=== PATIENT | male | born 1950 | race Caucasian/White ===

== ENCOUNTER 2021-08-24 10:42 | Inpatient (IN) | payer MEDICARE, OTHER ==
[~2021-08-24] VITALS: Ht 185.4 cm; Wt 69.1 kg
--- NOTE | 2021-08-24 15:50 | NUR ---
Patient to room 338 from the ED entrance. Came by private vehicle from [employer]. Nurse oriented the patient to location, room and call light.
[2021-08-24 15:59] VITALS: BP 105/69; PULSE 103; TEMP 98
[2021-08-24] MEDS ORDERED: LIPITOR 80MG80 MG PO (16:09)
[2021-08-24] MEDS ORDERED: CIPRO 500MG TA500 MG PO (16:09)
[2021-08-24] MEDS ORDERED: LASIX 20MG TABL20 MG PO (16:09)
[2021-08-24] MEDS ORDERED: NYSTATIN OR100 MU/ML PO (16:10)
[2021-08-24] MEDS ORDERED: TOPROL XL 25MG25 MG PO (16:10)
[2021-08-24] MEDS ORDERED: K-DUR 10 MEQ T10 MEQ PO (16:11)
[2021-08-24] MEDS ORDERED: PLAVIX 75MG TAB75 MG PO (16:12)
[2021-08-24] MEDS ORDERED: PREDNISONE20 MG PO (16:12)
[2021-08-24] MEDS ORDERED: MUCINEX 60600 MG/TA1 PO (16:12)
[2021-08-24] MEDS ORDERED: ASPIRIN E.C. 8181 MG PO (16:12)
[2021-08-24] MEDS ORDERED: TRELEGY ELLIPT1 EACH IH (16:13)
--- NOTE | 2021-08-24 17:49 | NUR ---
Patient sitting up on the edge of bed eating dinner. at the bedside. Patient A&Ox3. VSS. Intermittent coughing 2L NC O2. Denies pain and discomfort. Independent with feeds. Call light within reach
[2021-08-24 18:14] VITALS: BP 111/64; PULSE 102; TEMP 98.4
[2021-08-25 05:26] VITALS: BP 109/69; PULSE 92; TEMP 97.8
--- NOTE | 2021-08-25 06:11 | NUR ---
pt able to shower last noc before bed indepently with staff present. remains on 2L O2 per NC, bubbler added per RT, O2 sats upper 90's, however, pt did not want oxygen weaned, states he uses 2L @noc at home. slept well, no c/o pain or discomfort
--- NOTE | 2021-08-25 07:22 | NUR ---
SHIFT REPORT RECEIVED FROM FOOD SERVICE AIDE RN. PT SITTING IN BED. C/O SORE THROAT SIMILAR TO PAIN HE FELT WHEN EXTUBATED. ENCOURAGED PT. TO SIP FLUIDS. WILL DISCUSS WITH IPR PHYSICIAN UPON ARRIVAL. DENIES ANY OTHER PAIN/DISCOMFORT. DENIES SHORTNESS OF AIR OR DIFFICULTY BREATHING. CALL LIGHT IS WITHIN HIS REACH
[2021-08-25 08:50] LABS: CALCIUM 8.7 mg/dL (8.4-10.2); CREATININE, serum 0.92 mg/dL (0.72-1.25); POTASSIUM 3.9 mmol/L (3.5-4.5)
[2021-08-25] MEDS ORDERED: TRELEGY ELLIPT1 EACH IH (10:50)
--- NOTE | 2021-08-25 16:01 | NUR ---
Human Resources Analyst met with patient to complete initial intake as he is new to [facility]. Patient's , Rosangela (ph#[phone]) is at bedside. 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 Patient sees Dr. Kebede for primary care and obtains medications either through [facility] or [facility]. Patient has a cane and walker and reports that he is normally independent with ADLS. Patient does not have Advance Directives but plans to do this with his at some point. SW will continue to follow for discharge needs.
[2021-08-25 17:57] VITALS: BP 98/58; PULSE 96; TEMP 98.4
[2021-08-26 05:28] VITALS: BP 96/51; PULSE 81; TEMP 98
--- NOTE | 2021-08-26 16:13 | NUR ---
PT SITTING UP IN BED, DENIES PAIN OR NEEDS. PT HAS BEEN UP TO USE BR WITH SBA, REPORTS HAVING A BM. O2 ON VIA NC. PT'S SPOUSE HAS BEEN HERE TO VISIT TODAY. CALL LIGHT WITHIN REACH.
[2021-08-26 17:11] VITALS: BP 114/96; BP 96/63; PULSE 100; TEMP 98.3
--- NOTE | 2021-08-26 22:28 | NUR ---
Received report from day shift. Patient here for respiratory distress. VSS. PM meds administered. Patient denies pain at this time. Patient resting in bed with call light near.
[2021-08-27 05:42] VITALS: BP 90/64; PULSE 85; TEMP 98
--- NOTE | 2021-08-27 06:51 | NUR ---
Shift report received from hospice superintendent RN. Pt. awake and resting in bed. He reports continued throat irritation. PRN Cough drops, warm fluids, and mouth moisturizer have been helpful. He denies further needs at this time. Call light is within his reach.
--- NOTE | 2021-08-27 14:22 | NUR ---
Pt. sitting up in recliner. He denies pain or discomfort. Denies shortness of breath or difficulty breathing. He remains on O2 at 2L/nc. is in room visiting. He denies further needs at this time. Call light is within his reach
[2021-08-27 16:21] VITALS: BP 102/65; PULSE 103; TEMP 97.6
--- NOTE | 2021-08-27 21:54 | NUR ---
PATIENT ASLEEP IN BED ON ROOM ENTRY. AWAKENS TO SOUND. HS MEDS PER EMAR. METOPROLOL HELD, BP WAS 96/54. DENIES PAIN. CALL LIGHT IN REACH.
[2021-08-28 05:11] VITALS: BP 96/55; PULSE 67; TEMP 97.8
--- NOTE | 2021-08-28 06:48 | NUR ---
Pt. resting in left side lying position in bed. Shift report received from customer service professional RN. Call light is within his reach
--- NOTE | 2021-08-28 09:02 | NUR ---
Pt returning from PT. Sitting in room in recliner. He reports feeling his "usual shortness of breath". Pt. standing in bent-forward position with hands resting on his knees. He states this position helps him catch his breath. He remains on O2 at 2L via nc.
[2021-08-28 15:42] VITALS: BP 103/68; PULSE 80; TEMP 98.2
--- NOTE | 2021-08-28 16:05 | NUR ---
The team has set a discharge date for the patient on Saturday, 08/30, with outpatient PT. ZOLTAN met with the patient and his , Rosangela, and updated them on the team's recommendation. The patient and his are in agreement to the plan. The patient and Rosangela would prefer outpatient PT at [facility]. ZOLTAN contacted [facility] and [facility] and secured the patient an appointment on 09/04 at 1230. ZOLTAN to notify the community liaison of the appt. ZOLTAN will need to fax the patient's orders to [phone].
--- NOTE | 2021-08-28 18:14 | NUR ---
Pt. sitting up on side of bed. He has just completed his dinner. He denies pain or discomfort. He currently denies feeling shortness of breath or having difficulty breathing. He denies further needs at this time. Call light is within his reach
--- NOTE | 2021-08-28 22:35 | NUR ---
PATIENT IN BED. ALERT AND ORIENTED. DENIES PAIN. HS MEDS PER EMAR. PATIENT INDEPENDENT IN ROOM. DENIES ANY FURTHER NEEDS. CALL LIGHT IN REACH.
[2021-08-29 05:11] VITALS: BP 126/67; BP 147/111; PULSE 110; TEMP 98.2
--- NOTE | 2021-08-29 06:45 | NUR ---
Report received, assumed care for day shift.
--- NOTE | 2021-08-29 07:45 | NUR ---
Assessment complete. A&Ox3. Denies pain/nausea/shortness of breath. Noted to be hypertensive at 0400 this AM. Rechecked at this time by this nurse as Bp meds and Lasix are on hold-120s/60s. Currently on room air with adequate saturations. Plan of care discussed for this shift to include meds/therapy/calling for questions/concerns. Verbalizes understanding. Call light in reach. Will monitor.
[2021-08-29 11:37] LABS: CALCIUM 9.1 mg/dL (8.4-10.2); CREATININE, serum 0.89 mg/dL (0.72-1.25); POTASSIUM 4.2 mmol/L (3.5-4.5)
--- NOTE | 2021-08-29 14:35 | NUR ---
Admission QIM scores were reviewed by the team. Code of 3 chosen for walk 50 feet w/ 2 turns was determined by team discussion to be the most usual performance for this patient during the assessment period. Code of 3 chosen for walk 150 feet was determined by team discussion to be the most usual performance for this patient during the assessment period.--Tahira Morataya, PD
[2021-08-29 17:17] VITALS: BP 120/61; PULSE 103; TEMP 98.1
--- NOTE | 2021-08-29 18:06 | NUR ---
Patient had an uneventful day. Particpated in therapy. Denied pain/nausea. Short of breathe with activity. O2@1L/NC with adequate saturation. Denies current needs. Call light in reach. Will monitor.
--- NOTE | 2021-08-30 01:48 | NUR ---
Received report from day shift. VSS. Assessment performed. PM meds administered. Patient denies pain at this time. Call light within reach.
[2021-08-30 06:13] VITALS: BP 93/64; PULSE 105; TEMP 97.2
--- NOTE | 2021-08-30 07:19 | NUR ---
Shift report received from shift boss RN. Pt. sitting up on side of bed. Denies pain or discomfort. Denies shortness of breath/difficulty breathing. Breathing is unlabored at this time. Call light is within his reach
[2021-08-30 10:31] VITALS: BP 115/72; PULSE 83; TEMP 97.5
--- NOTE | 2021-08-30 10:36 | NUR ---
Pt sitting up in recliner. is in his room visit. Pt. is anticipating his discharge today. He denies pain or discomfort. He denies feeling short of breath. Call light is within his reach
--- NOTE | 2021-08-30 11:23 | NUR ---
The patient is to discharge back home with his today, 08/30, with outpatient PT at [facility]. SW to fax orders to [facility], once finalized. No additional needs at this time.
[2021-08-30 12:14] VITALS: BP 137/70; PULSE 103
[2021-08-30] MEDS ORDERED: PLAVIX 75MG TAB75 MG PO (12:28)
[2021-08-30] MEDS ORDERED: NYSTATIN OR100 MU/ML PO (12:28)
[2021-08-30] MEDS ORDERED: K-DUR 10 MEQ T10 MEQ PO (12:29)
[2021-08-30] MEDS ORDERED: TOPROL XL 25MG25 MG PO (12:29)
[2021-08-30] MEDS ORDERED: LASIX 20MG TABL20 MG PO (12:34)
--- NOTE | 2021-08-30 14:03 | NUR ---
Pt Health Summary, Home Meds, Discharge Summary reviewed with pt. and his . Discussed keeping follow up appointments. They had no further questions. Personal belongings were gathered by pt's . Pt. escorted via wheelchair to car and seatbelted for ride home
[2021-09-11] MEDS ORDERED: PREDNISONE10 MG PO (19:04)
[2021-09-11] MEDS ORDERED: VALIUM 2MG T2 MG/TAB PO (19:05)
[2021-09-11] MEDS ORDERED: NYSTATIN OR100 MU/ML PO (19:05)
[2021-09-11] MEDS ORDERED: VITAMIN B12 681 TAB PO (19:06)
[2021-09-11] MEDS ORDERED: OMEGA-31 SGL PO (19:06)
[2021-09-11] MEDS ORDERED: VENTOLIN0.09 MG IH (19:06)
[2021-09-11] MEDS ORDERED: XALATAN EYE DROPS OD (19:07)
[2021-09-11] MEDS ORDERED: ALPHAGAN OPHTH D5 ML OU (19:07)
== END 2021-08-30 14:00 | disposition home or self-care (01) | DRG 189 ==
PROVIDERS: ADMIT Physical Medicine & Rehabilitation Sports Medicine
DX: J96.21 Acute and chronic respiratory failure with hypoxia (principal); A41.9 Sepsis, unspecified organism; J18.9 Pneumonia, unspecified organism; I21.4 Non-ST elevation (NSTEMI) myocardial infarction; I50.31 Acute diastolic (congestive) heart failure; B37.0 Candidal stomatitis; J44.0 Chronic obstructive pulmonary disease with (acute) lower respiratory infection; J44.1 Chronic obstructive pulmonary disease with (acute) exacerbation; J96.22 Acute and chronic respiratory failure with hypercapnia; I25.10 Atherosclerotic heart disease of native coronary artery without angina pectoris; Z95.5 Presence of coronary angioplasty implant and graft; R26.89 Other abnormalities of gait and mobility; L89.151 Pressure ulcer of sacral region, stage 1; R51.9 Headache, unspecified; M25.512 Pain in left shoulder; M25.511 Pain in right shoulder; K21.9 Gastro-esophageal reflux disease without esophagitis; Z73.6 Limitation of activities due to disability; Z95.820 Peripheral vascular angioplasty status with implants and grafts; Z79.2 Long term (current) use of antibiotics; Z79.52 Long term (current) use of systemic steroids; Z79.82 Long term (current) use of aspirin; Z79.899 Other long term (current) drug therapy; Z87.891 Personal history of nicotine dependence
CPT/HCPCS: 99222; 99232-AI; A9284; J1650; J7512